=== PATIENT | male | born 1945 | race Caucasian/White ===

== ENCOUNTER 2022-07-03 00:05 | Inpatient (IN) ==
[2022-07-03 02:00] LABS: RBC,Urine 267 /HPF (0-4); Urine Color Red (Yellow)
[2022-07-03 02:01] LABS: Bilirubin,Urine Negative (Negative); Blood, Urine Large mg/dL (Negative); Ketones,Urine Negative (Negative); Nitrite,Urine Negative (Negative); Urine Appearance Cloudy (Clear); Urine Urobilinogen 0.2 eU/dL (<2.0)
[2022-07-03 02:11] LABS: Basophils % 0.4 % (0.0-0.8); Eosinophils # 0.2 10*3/uL (0.0-0.87); Eosinophils % 3.4 % (0.00-10.9); Hematocrit 37.2 VOL% (42.0-52.0); Immature Granulocytes % 0.3 %; Immature Granulocytes Absolute 0.02 #; Lymphocytes # 1.7 10*3/uL (1.4-4.0); Lymphocytes % 24.6 % (21.2-54.2); Mean Corpuscular HGB Conc 32.3 GM/DL (32-36); Mean Corpuscular Volume 92.1 FL (87-102); Mean Platelet Volume 11.6 FL (9.6-12.0); Monocytes # 0.6 10*3/uL (0.11-0.8); Monocytes % 7.9 % (1.7-12.7); Neutrophils % 63.4 % (38.7-73.9); Platelet Count 107 T/CUMM (130-400); Red Blood Count 4.04 MC/CUMM (3.8-5.5); Red Cell Distribution Width 13.6 % (9.3-17.3)
[2022-07-03 02:13] LABS: Glucose,Urine (UA) 100 mg/dL (Negative); Protein,Urine >=300 mg/dL (Negative)
[2022-07-03 02:19] LABS: INR 1.1; Partial Thromboplastin Time 26.8 SECS (23.7-32.9)
[2022-07-03 02:34] LABS: Alanine Aminotransferase 29 U/L (16-61); Albumin 3.5 G/DL (3.4-5.0); Alkaline Phosphatase 61 U/L (45-117); Aspartate Amino Transferase 21 U/L (0-37); Bilirubin,Total < 0.39 MG/DL (0.20-1.00); Blood Urea Nitrogen 18 MG/DL (7-18); Calcium 9.1 MG/DL (8.5-10.1); Carbon Dioxide 29 MMOL/L (21-32); Chloride 109 MMOL/L (98-107); Glucose 90 MG/DL (74-106); Osmolality,Calculated 284.1 MOS/KG (273-304); Potassium 3.9 MMOL/L (3.5-5.1); Sodium 142 MMOL/L (136-145); Total Protein 6.6 G/DL (6.4-8.2)
[2022-07-03] MEDS ORDERED: GLUCAGON 1 MG VIAL IM PRN (04:08)
[2022-07-03] MEDS ORDERED: DEXTROSE 10% 250 ML BAG IV PRN ×2 (04:08→09:18)
[2022-07-03] MEDS ORDERED: ONDANSETRON 4 MG/2 ML VIAL IV PRN (04:13)
[2022-07-03] MEDS ORDERED: MORPHINE 2 MG/1 ML SYRINGE IV PRN (04:13)
[2022-07-03] MEDS ORDERED: hydrALAZINE 20 MG/1 ML VIAL IV PRN (04:13)
[2022-07-03] MEDS: SODIUM CHLORIDE 0.9% 1,000 ML IV SCH ×2 (04:46→18:56)
[2022-07-03] MEDS: PANTOPRAZOLE 40 MG TABLET PO SCH (08:32)
[2022-07-03] MEDS: clonazePAM 0.5 MG TABLET PO SCH ×2 (08:32→21:22)
[2022-07-03] MEDS: MULTIVITAMIN (CENTRUM) TABLET PO SCH (08:32)
[2022-07-03] MEDS: LOSARTAN 25 MG TABLET PO SCH (08:32)
[2022-07-03] MEDS: INSULIN LISPRO 100 UNIT/ML SUBCUT SCH ×4 (08:53→21:22)
[2022-07-03] MEDS: carvediloL 12.5 MG TABLET PO SCH ×2 (10:33→21:22)
[2022-07-03 13:28] LABS: Basophils % 0.3 % (0.0-0.8); Eosinophils # 0.1 10*3/uL (0.0-0.87); Eosinophils % 1.3 % (0.00-10.9); Hematocrit 37.6 VOL% (42.0-52.0); Hemoglobin 12.2 GM/DL (14.0-18.0); Immature Granulocytes % 0.3 %; Immature Granulocytes Absolute 0.03 #; Lymphocytes # 1.4 10*3/uL (1.4-4.0); Lymphocytes % 14.9 % (21.2-54.2); Mean Corpuscular HGB Conc 32.4 GM/DL (32-36); Mean Corpuscular Volume 91.3 FL (87-102); Mean Platelet Volume 11.7 FL (9.6-12.0); Monocytes # 0.6 10*3/uL (0.11-0.8); Neutrophils % 77.2 % (38.7-73.9); Platelet Count 112 T/CUMM (130-400); Red Blood Count 4.12 MC/CUMM (3.8-5.5); Red Cell Distribution Width 13.7 % (9.3-17.3); White Blood Count 9.4 T/CUMM (4-12)
[2022-07-03] MEDS: SIMVASTATIN 40 MG TABLET PO SCH (21:22)
[2022-07-04 06:12] LABS: Basophils % 0.5 % (0.0-0.8); Eosinophils # 0.2 10*3/uL (0.0-0.87); Eosinophils % 2.8 % (0.00-10.9); Hematocrit 35.4 VOL% (42.0-52.0); Hemoglobin 11.6 GM/DL (14.0-18.0); Immature Granulocytes % 0.2 %; Immature Granulocytes Absolute 0.01 #; Lymphocytes # 1.5 10*3/uL (1.4-4.0); Lymphocytes % 24.2 % (21.2-54.2); Mean Corpuscular HGB Conc 32.8 GM/DL (32-36); Mean Corpuscular Volume 91.2 FL (87-102); Mean Platelet Volume 11.8 FL (9.6-12.0); Monocytes # 0.4 10*3/uL (0.11-0.8); Monocytes % 6.7 % (1.7-12.7); Neutrophils % 65.6 % (38.7-73.9); Red Blood Count 3.88 MC/CUMM (3.8-5.5); Red Cell Distribution Width 13.8 % (9.3-17.3)
[2022-07-04 06:25] LABS: Platelet Count 92 T/CUMM (130-400)
[2022-07-04 06:26] LABS: White Blood Count 6.1 T/CUMM (4-12)
[2022-07-04 06:29] LABS: Bilirubin,Total 0.4 MG/DL (0.20-1.00); Calcium 8.6 MG/DL (8.5-10.1); Osmolality,Calculated 283.1 MOS/KG (273-304); Potassium 3.6 MMOL/L (3.5-5.1); Risk Ratio 3.43; VLDL Cholesterol 22.2 MG/DL
[2022-07-04 06:33] LABS: Platelet Estimate Decreased
[2022-07-04] MEDS: INSULIN LISPRO 100 UNIT/ML SUBCUT SCH ×4 (08:52→20:47)
[2022-07-04] MEDS: carvediloL 12.5 MG TABLET PO SCH ×2 (09:32→20:47)
[2022-07-04] MEDS: clonazePAM 0.5 MG TABLET PO SCH ×2 (09:32→20:46)
[2022-07-04] MEDS: PANTOPRAZOLE 40 MG TABLET PO SCH (09:32)
[2022-07-04] MEDS: MULTIVITAMIN (CENTRUM) TABLET PO SCH (09:32)
[2022-07-04] MEDS: LOSARTAN 25 MG TABLET PO SCH (09:32)
[2022-07-04] MEDS: SODIUM CHLORIDE 0.9% 1,000 ML IV SCH (20:47)
[2022-07-04] MEDS: SIMVASTATIN 40 MG TABLET PO SCH (20:47)
[2022-07-05] MEDS ORDERED: BICALUTAMIDE 50 MG TABLET PO SCH (09:00)
[2022-07-05 09:10] VITALS: BP 128/71
[2022-07-05] MEDS: INSULIN LISPRO 100 UNIT/ML SUBCUT SCH ×2 (09:43→11:56)
[2022-07-05] MEDS: MULTIVITAMIN (CENTRUM) TABLET PO SCH (09:43)
[2022-07-05] MEDS: carvediloL 12.5 MG TABLET PO SCH (09:44)
[2022-07-05] MEDS: clonazePAM 0.5 MG TABLET PO SCH (09:44)
[2022-07-05] MEDS: PANTOPRAZOLE 40 MG TABLET PO SCH (09:44)
[2022-07-05] MEDS: LOSARTAN 25 MG TABLET PO SCH (09:44)
== END 2022-07-05 12:01 | disposition home or self-care (01) | DRG 694 ==
LOC: N.EDINP 00:05 → N.ED 00:05 → SUATTDRO 04:08 → N.TELEN 04:53
PROVIDERS: ADMIT Internal Medicine; ATTEND Hospitalist